=== PATIENT | female | born 1970 | race Caucasian/White ===

== ENCOUNTER 2016-12-15 22:38 | Emergency (ER) | payer OTHER ==
[~2016-12-15] VITALS: Ht 157.5 cm; Wt 65.5 kg
[2016-12-15 22:44] VITALS: Ht 157.5 cm; Wt 65.5 kg
--- NOTE | 2016-12-15 22:46 | ERA ---
ER Documentation Chief Complaint Date/Time DATE: 12/15/16 TIME: 22:45 Chief Complaint High blood pressure HPI The patient is a 46-year-old female, presenting to the ER because of elevated blood pressure at home 190/110, she therefore called 911 to bring her to the hospital. She had similar symptoms previously, taking her medication, denies any unusual stress. She denies headache, dizziness, neck pain, chest pain, dyspnea, abdominal pain, vomiting, dysuria, diarrhea. She does not smoke nor drink Past medical history: Hypertension, diabetes mellitus Past surgical history: None ROS All systems reviewed and are negative except as per history of present illness. Medications Home Meds Reported Medications Glipizide* (Glipizide*) 5 Mg Tablet, 5 MG PO AC BREAKFAST DINNER, TAB 12/15/16 Metoprolol Tartrate* (Lopressor*) 25 Mg Tab, 25 MG PO BID, #60 TAB 12/15/16 Gabapentin* (Gabapentin*) 100 Mg Capsule, 100 MG PO TID, #90 CAP 12/15/16 Lisinopril* (Lisinopril*) 10 Mg Tablet, 10 MG PO DAILY, #30 TAB 12/15/16 Cholecalciferol* (Vitamin D3*) 1,000 Unit Tablet, 1000 UNIT PO DAILY, TAB 12/15/16 Allergies Allergies: Coded Allergies: No Known Allergy (Unverified , 12/15/16) Physical Exam Vitals Vital Signs Date Time Temp Pulse Resp B/P Pulse Ox O2 Delivery O2 Flow Rate FiO2 12/16/16 00:36 58 18 165/92 100 12/15/16 22:44 98.3 64 18 190/96 99 Physical Exam Const: No acute distress. Head: Atraumatic. Eyes: Normal Conjunctiva. ENT: Normal External Ears, Nose and Mouth. Neck: Full range of motion. No meningismus. Resp: Clear to auscultation bilaterally. Cardio: Regular rate and rhythm, no murmurs. Abd: Soft, non distended, normal bowel sounds, non tender. Skin: No petechiae or rashes. Back: No midline or flank tenderness. Ext: No cyanosis, or edema. Neur: Awake and alert. No focal deficit Psych: Normal Mood and Affect. Result Diagram: 12/15/16 2300 12/15/16 2300 Results 24 hrs Laboratory Tests Test 12/15/16 23:00 White Blood Count 10.710^3/ul Red Blood Count 4.7910^6/ul Hemoglobin 12.2g/dl Hematocrit 39.4% Mean Corpuscular Volume 82.3fl Mean Corpuscular Hemoglobin 25.5pg Mean Corpuscular Hemoglobin Concent 31.0g/dl Red Cell Distribution Width 14.9% Platelet Count 34478^3/UL Mean Platelet Volume 11.0fl Neutrophils % 63.7% Lymphocytes % 27.2% Monocytes % 6.3% Eosinophils % 1.9% Basophils % 0.6% Nucleated Red Blood Cells % 0.0/100WBC Neutrophils # 6.910^3/ul Lymphocytes # 2.910^3/ul Monocytes # 0.710^3/ul Eosinophils # 0.210^3/ul Basophils # 0.110^3/ul Nucleated Red Blood Cells # 0.010^3/ul Prothrombin Time 12.2Sec Prothrombin Time Ratio 1.0 INR International Normalized Ratio 0.91 Activated Partial Thromboplast Time 29.2Sec Sodium Level 142mmol/L Potassium Level 3.5mmol/L Chloride Level 100mmol/L Carbon Dioxide Level 30mmol/L Anion Gap 16 Blood Urea Nitrogen 13mg/dl Creatinine 0.94mg/dl Glucose Level 163mg/dl Calcium Level 9.4mg/dl Procedures/MDM MEDICAL MAKING DECISION: The patient is a 46-year-old female, presenting with acute accelerated hypertension that improved by itself. The differential diagnoses considered include but are not limited to medical noncompliance, dietary noncompliance, stress, anxiety subarachnoid hemorrhage, occult trauma, CVA, meningitis, encephalitis, hypertension, tension, migraine, cluster, narcotic withdrawal, cervical spine disease. Departure Diagnosis: Primary Impression: HTN (hypertension) Condition: Good Comments I discussed the findings with the patient. I advised the patient to follow-up with the primary physician in about 1-2 days, sooner if needed and return if any concern. SHAMAR BENITEZ MD Dec 15, 2016 22:46
[2016-12-15] MEDS ORDERED: CHOL100062 PO (23:11)
[2016-12-15] MEDS ORDERED: LISI10TA2 PO (23:12)
[2016-12-15] MEDS ORDERED: GABA100C14 PO (23:12)
[2016-12-15 23:13] LABS: ADD SCAN DIFF NO
[2016-12-15] MEDS ORDERED: GLIP5TAB13 PO (23:13)
[2016-12-15] MEDS ORDERED: METO-448 PO (23:13)
[2016-12-15 23:16] LABS: BASOPHIL # 0.1 10^3/ul (0.0-0.1); BASOPHILS % 0.6 % (0.0-2.0); EOSINOPHILS # 0.2 10^3/ul (0.0-0.5); EOSINOPHILS % 1.9 % (0.0-7.0); HEMATOCRIT 39.4 % (37.0-47.0); HEMOGLOBIN 12.2 g/dl (12.0-16.0); LYMPHOCYTES # 2.9 10^3/ul (0.8-2.9); LYMPHOCYTES % 27.2 % (15.0-51.0); MEAN CORPUSCULAR HEMOGLOBIN 25.5 pg (29.0-33.0); MEAN CORPUSCULAR VOLUME 82.3 fl (82.0-101.0); MONOCYTE # 0.7 10^3/ul (0.3-0.9); MONOCYTES % 6.3 % (0.0-11.0); NEUTROPHIL # 6.9 10^3/ul (1.6-7.5); NEUTROPHILS % 63.7 % (39.0-77.0); PLATELET COUNT 334 10^3/UL (140-415); RED BLOOD COUNT 4.79 10^6/ul (4.20-5.40); RED CELL DISTRIBUTION WIDTH 14.9 % (11.5-14.5); WHITE BLOOD COUNT 10.7 10^3/ul (4.8-10.8)
[2016-12-15 23:28] LABS: INR 0.91; PROTIME 12.2 Sec (12.2-14.2)
[2016-12-15 23:29] LABS: PARTIAL THROMBOPLASTIN TIME 29.2 Sec (25.0-35.0)
[2016-12-15 23:30] LABS: POTASSIUM 3.5 mmol/L (3.5-5.1)
[2016-12-15 23:32] LABS: CREATININE 0.94 mg/dl (0.44-1.00)
[2016-12-15 23:33] LABS: CALCIUM 9.4 mg/dl (8.4-10.2)
[2016-12-16 00:36] VITALS: BP 165/92; PULSE 58; RESP 18
== END 2016-12-16 00:57 | disposition home or self-care (01) ==
LOC: E/R 22:38
DX: I10 Essential (primary) hypertension (principal); R40.2142 Coma scale, eyes open, spontaneous, at arrival to emergency department; R40.2362 Coma scale, best motor response, obeys commands, at arrival to emergency department; R40.2252 Coma scale, best verbal response, oriented, at arrival to emergency department
CPT/HCPCS: 36415; 80048; 85025; 85610; 85730; Z7502; 99283